=== PATIENT | female | born 1990 | race Two or more races ===

== ENCOUNTER 2023-05-27 02:34 | Emergency (ER) | payer OTHER ==
[~2023-05-27] VITALS: Ht 167.6 cm; Wt 90.7 kg
[2023-05-27] MEDS ORDERED: HYDRALAZINE HCL25 MG (02:48)
[2023-05-27] MEDS ORDERED: LABETALOL HCL200 MG (02:48)
[2023-05-27] MEDS ORDERED: ALBUTEROL2.5 MG/3 M (02:49)
== END 2023-05-27 10:01 | disposition home or self-care (01) ==
LOC: ER 02:34
DX: K52.9 Noninfective gastroenteritis and colitis, unspecified (principal); Z88.6 Allergy status to analgesic agent; Z88.2 Allergy status to sulfonamides